=== PATIENT | male | born 1970 | race American Indian/Alaskan Native ===

== ENCOUNTER 2022-02-12 07:39 | Day surgery (SDC) | payer OTHER ==
[2022-02-12] MEDS ORDERED: LACTATED RINGERS 1,000 ML ONE (08:32)
[2022-02-12] MEDS ORDERED: BUPIVACAINE/PF (0.5%) 5 MG/1 ML 10 ML VIAL INFILTRATI ONE (08:38)
[2022-02-12] MEDS ORDERED: BUPIVACAINE/PF (0.5%) 5 MG/1 ML 30 ML VIAL INFILTRATI ONE ×2 (08:39→09:57)
[2022-02-12] MEDS ORDERED: LIDOCAINE (1%) 10 MG/1 ML VIAL 20 ML MDV ONE (08:39)
[2022-02-12] MEDS ORDERED: fentaNYL 100 MCG/2 ML INJ ONE (08:53)
[2022-02-12] MEDS ORDERED: propofoL 200 MG/20 ML VIAL IV ONE ×2 (08:53→09:42)
[2022-02-12] MEDS ORDERED: LIDOCAINE MPF (2%) 20 MG/1 ML VIAL 5 ML ONE (08:53)
[2022-02-12] MEDS ORDERED: MIDAZOLAM 2 MG/2 ML INJ ONE ×2 (08:53→09:15)
[2022-02-12] MEDS ORDERED: KETAMINE/STERILE WATER 50 MG/ML SYRINGE ONE (08:54)
[2022-02-12] MEDS ORDERED: MIDAZOLAM 2 MG/2 ML INJ IV NR (09:00)
[2022-02-12] MEDS ORDERED: ceFAZolin/Water 2 GM/20 ML 2 GM/20 ML SYRINGE IV ONE (09:11)
--- NOTE | 2022-02-12 09:16 | Anesthesia Consultation ---
Anesthesia Consult and Med Hx Date of service: 02/12/22 - Airway Anesthetic Teeth Evaluation: Good ROM Head & Neck: Adequate Mental/Hyoid Distance: Adequate Mallampati Class: Class II Intubation Access Assessment: Good - Pulmonary Exam CTA: Yes - Cardiac Exam Cardiac Exam: No Murmur - Pre-Operative Health Status ASA Pre-Surgery Classification: ASA2 Proposed Anesthetic Plan: General - Pulmonary Hx Smoking: Yes - Central Nervous System Hx Psychiatric Problems: No - Hematic Hx Sickle Cell Disease: Yes (Trait only) - Other Systems Hx Alcohol Use: Yes (Occas) Hx Substance Use: Yes (Marijuana daily) Hx Cancer: No
--- NOTE | 2022-02-12 09:17 | Anesthesia Day of Surgery ---
Anesthesia Day of Surgery - Day of Surgery Patient H&P Reviewed: Yes Patient is NPO: Yes
[2022-02-12] MEDS ORDERED: LACTATED RINGERS 1,000 ML IV SCH (09:30)
[2022-02-12] MEDS ORDERED: LIDOCAINE (1%) 10 MG/1 ML VIAL 20 ML MDV INFILTRATI ONE (09:57)
[2022-02-12] MEDS ORDERED: SODIUM CHLORIDE 0.9% IRR 1,500 ML BOTTLE IR ONE (09:58)
[2022-02-12] MEDS ORDERED: ONDANSETRON 4 MG/2 ML INJ ONE (10:17)
--- NOTE | 2022-02-12 10:23 | Short Stay Summary ---
Short Stay Documentation Date of service: 02/12/22 - History Principal diagnosis: soft tissue mass left face H&P: obtained from office - Allergies and Medications Current Medications: Allergies No Known Allergies Allergy (Unverified 02/04/22 18:46) Home Medications Medication Instructions Recorded Confirmed Last Taken Type No Known Home Medications [No 02/04/22 02/04/22 Unknown History Reported Home Medications] Active Medications Cefazolin Sodium (Cefazolin/Sterile Water 2 Gm/20 Ml Syringe) 2 gm IV PREOP NR Lactated Ringer's (Lactated Ringers) 1,000 mls @ 125 mls/hr IV DIRECT TARA Midazolam HCl (Midazolam 2 Mg/2 Ml Inj) 2 mg IV PREOP NR Stop: 02/12/22 14:00 - Brief post op/procedure progress note Date of procedure: 02/12/22 Pre-op diagnosis: soft tissue mass left side face Post-op diagnosis: same Procedure: excision soft tissue mass left side of face Anesthesia: MAC, local Findings: 3 cm STM of left side of face. Glandular appearance. Surgeon: ЮЛИЯ MOCK Estimated blood loss: minimal Pathology: list (soft tissue mass left face - marked 1. short stitch superficial, 2. long stitch lateral, 3. double stitch superior) Specimen disposition: to lab Condition: stable - Hospital course Hospital course: Pt observed in PACU and discharged to home in stable condition when criteria met - Disposition Condition at discharge: Good Disposition: 01 HOME / SELF CARE / HOMELESS Short Stay Discharge Plan Activity: no restrictions Diet: regular Wound: open to air (May shower starting tomorrow. Pat incision dry and do not scrub. Do not submerge incision in hottube/pool/bath tub for 2 wks) Additional Instructions: Take over the counter tylenol or ibuprofen for pain. If pain not controlled with these medications, you have been given a prescription for stronger medications. Do not drive if taking prescription pain medications. Follow up with: PRIMARY CARE, [Primary Care Provider] - 7 Days ЮЛИЯ MOCK DO [Staff Physician] - 14 Days Prescriptions: Acetaminophen/Codeine [Tylenol /Codeine # 3 tab] 1 tab PO Q12H PRN #6 tab PRN Reason: Pain , Severe (7-10)
[2022-02-12 11:46] VITALS: BP 136/88
--- NOTE | 2022-02-12 13:12 | Post Anesthesia Evaluation ---
- Post Anesthesia Evaluation Patient Participated: Yes Airway Patent: Yes Stable Respiratory Function: Yes Nausea/Vomiting: No Temp > 96.8F: Yes Pain Manageable: Yes Adequeate Hydration: Yes Anesthesia Complications: No
--- NOTE | 2022-02-12 13:41 | Operative Report ---
Operative Report Operative Report: Date of procedure: 02/12/22 Pre-op diagnosis: soft tissue mass left side face Post-op diagnosis: same Procedure: excision soft tissue mass left side of face Anesthesia: MAC, local Findings: 3 cm STM of left side of face. Glandular appearance. Surgeon: ЮЛИЯ MOCK Estimated blood loss: minimal Pathology: list (soft tissue mass left face - marked 1. short stitch superficial, 2. long stitch lateral, 3. double stitch superior) Specimen disposition: to lab Condition: stable Hospital course: Pt observed in PACU and discharged to home in stable condition when criteria met Condition at discharge: Good Disposition: 01 HOME / SELF CARE / HOMELESS Indication: Patient is a 51-year-old male who presented to the office to be evaluated for left-sided facial mass. Upon physical examination the mass was superficial in the left periauricular area without overlying skin changes. It was mobile. The mass was bothersome and the patient elected for excision. After all risks were discussed and questions answered, consent was signed in the office. Procedure in detail: Patient was identified in the preoperative area, taken back to the operating room, placed on the operating room table in supine position. After anesthesia was induced, the left face was prepped and draped in usual sterile fashion and a timeout was performed. Local anesthetic was infiltrated into the skin at the intended incision site. A linear incision was made in the skin over the mass using a 15 blade. Dissection was carried down through the skin using 15 blade. This mass was identified and the capsule bluntly dissected with a hemostat. Once the mass was clearly visualized it appeared to be glandular in nature. The mass was circumferentially dissected from the surroun ding tissue using a combination of blunt dissection with a hemostat, sharp dissection with iris scissor.minimal electrocautery was used. Once normal fatty tissue was identified the mass in its entirety was removed from the subcutaneous tissue. The mass measured approximately 3 cm. It was marked 1. short stitch superficial, 2. long stitch lateral, 3. double stitch superior. This was then passed off the table as a specimen. The wound was then irrigated and hemostasis achieved. Once hemostasis was ensured, the deep dermal layer was closed using interrupted 3-0 Vicryl sutures. The skin was closed with 4-0 Monocryl subcuticular running stitch and skin glue. At the end of the case, all sponge, instrument, sharp counts were correct 2. The patient was awoken from anesthesia and taken to PACU in stable condition.
[2022-02-13] MEDS ORDERED: ceFAZolin/STERILE WATER 2 GM/20 ML SYRINGE IV NR ×2 (09:08→11:00)
== END 2022-02-12 11:20 | disposition home or self-care (01) ==
LOC: OR 07:39
PROVIDERS: ATTEND Surgery
DX: R22.0 Localized swelling, mass and lump, head (principal); D23.39 Other benign neoplasm of skin of other parts of face; F17.210 Nicotine dependence, cigarettes, uncomplicated; Z79.899 Other long term (current) drug therapy; Z90.49 Acquired absence of other specified parts of digestive tract; Z72.89 Other problems related to lifestyle; Z98.890 Other specified postprocedural states
CPT/HCPCS: 11443; 12052; 88307; J0690; J2250; J2405; J2704; J3010; J3490; J7120; 88305